=== PATIENT | female | born 1995 | race Two or more races ===

== ENCOUNTER 2017-04-12 20:07 | Emergency (ER) | payer SELFPAY ==
[~2017-04-12] VITALS: Ht 160 cm; Wt 48.0 kg
[2017-04-12 20:30] VITALS: BP 139/89
== END 2017-04-12 23:05 | disposition left against medical advice (07) ==
LOC: ER 22:23
DX: Z53.21 Procedure and treatment not carried out due to patient leaving prior to being seen by health care provider (principal)